=== PATIENT | female | born 1955 ===

== ENCOUNTER 2018-07-24 09:23 | Emergency (ER) | payer MEDICAID, OTHER ==
[2018-07-24 09:23] VITALS: BMI 35.9
[2018-07-24 09:27] VITALS: BP 143/80; PULSE 90; RESP 20; TEMP 98; O2SAT 98
--- NOTE | 2018-07-24 10:55 | RAD ---
Date of service: 07/24/2018 PROCEDURE: HISTORY: Right thigh pain COMPARISON: None TECHNIQUE: Four views FINDINGS: No fracture or lytic lesion. Superolateral and inferomedial acetabular spurring. Quadriceps insertional enthesophyte Medial femoral tibial asymmetrical joint space narrowing and mild superolateral right hip joint space narrowing. IMPRESSION: No fracture or dislocation. Grossly the soft tissues appear unremarkable. 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
--- NOTE | 2018-07-24 11:59 | C.PDOC ---
History Of Present Illness Pt c/o RLE pain in right thigh. Denies trauma. Time Seen by Provider: 07/24/18 09:38 Chief Complaint (Nursing): Lower Extremity Problem/Injury History Per: Patient Onset/Duration Of Symptoms: Days (about 2 weeks) Current Symptoms Are (Timing): Still Present Severity: Moderate Additional History Per: Prior Records Past Medical History Reviewed: Historical Data, Nursing Documentation, Vital Signs Vital Signs: Last Vital Signs Temp 98 F 07/24/18 09:26 Pulse 90 07/24/18 09:26 Resp 20 07/24/18 09:26 BP 143/80 07/24/18 09:26 Pulse Ox 98 07/24/18 09:26 - Medical History PMH: Gastritis Surgical History: Endoscopy - [facility] Procedures CLOSED ENDOSCOPIC BIOPSY OF LARGE INTESTINE (01/16/15) CLOSURE SKIN & SUBCUTANEOUS NEC (08/30/14) ESOPHAGOGASTRODUODENOSCOPY [EGD] W/CLOSED BIOPSY (01/15/15) INJECT/INFUSE NEC (10/19/13) Family History: States: Unknown Family Hx - Social History Hx Tobacco Use: No Hx Alcohol Use: No Hx Substance Use: No - Immunization History Hx Tetanus Toxoid Vaccination: No Hx Influenza Vaccination: No Hx Pneumococcal Vaccination: No Review Of Systems Except As Marked, All Systems Reviewed And Found Negative. Constitutional: Negative for: Fever, Weakness Cardiovascular: Negative for: Chest Pain Respiratory: Negative for: Shortness of Breath, Hemoptysis Gastrointestinal: Negative for: Abdominal Pain Musculoskeletal: Negative for: Back Pain, Foot Pain Skin: Negative for: Rash Neurological: Negative for: Weakness, Numbness Physical Exam - Physical Exam Appears: Non-toxic, No Acute Distress Skin: Normal Color, Warm, Dry, No Rash Head: Atraumatic, Normacephalic Eye(s): bilateral: PERRL, EOMI Neck: Normal ROM, Supple Cardiovascular: Rhythm Regular Respiratory: Normal Breath Sounds, No Accessory Muscle Use Gastrointestinal/Abdominal: Soft, No Tenderness Back: No Vertebral Tenderness Extremity: Normal ROM, Tenderness (nonspecific, mostly around right knee and hip areas) Extremity: Bilateral: Normal Color And Temperature Pulses: Right Dorsalis Pedis: Normal Neurological/Psych: Oriented x3, Normal Motor, Normal Sensation ED Course And Treatment O2 Sat by Pulse Oximetry: 98 Pulse Ox Interpretation: Normal - Other Rad Right Femur x-rays X-Ray: Viewed By Me, Read By Radiologist Interpretation: IMPRESSION: No fracture or dislocation. Grossly the soft tissues appear unremarkable. 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 Return to the ER if you develop weakness, numbness, chest pain, shortness of breath, worsening of symptoms or if you have any other concerns. Prescriptions: Meloxicam 7.5 mg PO DAILY PRN #30 tablet PRN Reason: Arthritis Instructions: Osteoarthritis (DC) Forms: [employer] (Slovak) Print Language: FRISIAN - Clinical Impression Clinical Impression: Arthrosis
--- NOTE | 2018-07-26 21:36 | VASCLAB ---
Date of service: 07/24/2018 PROCEDURE: Right Lower Extremity Venous Duplex Exam. HISTORY: RLE pain. r/o DVT. PRIORS: None. TECHNIQUE: Right common femoral, femoral, popliteal and posterior tibial, peroneal and great saphenous veins were evaluated. Flow was assessed with color Doppler, compressibility, assessment of phasic flow and augmentation response. Report prepared by EVELIA Meda FINDINGS: RIGHT: 1. Common Femoral Vein: 1.1. Compressibility - Fully compressible: Thrombus - None: Flow - Phasic: Augmentation -Normal: Reflux - None. 2. Femoral Vein: 2.1. Compressibility - Fully compressible: Thrombus - None: Flow - Phasic: Augmentation -Normal: Reflux - None. 3. Popliteal Vein: 3.1. Compressibility - Fully compressible: Thrombus - None: Flow - Phasic: Augmentation -Normal: Reflux - None. 4. Posterior Tibial Vein: 4.1. Compressibility - Fully compressible: Thrombus - None: Flow - Phasic: Augmentation -Normal: Reflux - None. 5. Peroneal Vein: 5.1. Compressibility - Fully compressible: Thrombus - None: Flow - Phasic: Augmentation -Normal: Reflux - None. 6. Great Saphenous Vein: 6.1. Compressibility - Fully compressible: Thrombus -None: Flow - Phasic: Augmentation - Normal: Reflux - None. OTHER FINDINGS: IMPRESSION: No evidence of deep or superficial vein thrombosis of the right lower extremity with excellent venous flow. Normal valve function noted of the right side. Normal venous flow noted in the left common femoral vein.
== END 2018-07-24 12:12 | disposition home or self-care (01) ==
LOC: C.ER 09:23
DX: M16.11 Unilateral primary osteoarthritis, right hip (principal); M17.11 Unilateral primary osteoarthritis, right knee